=== PATIENT | female | born 1990 | race Hispanic/Latino ===

== ENCOUNTER 2020-02-18 09:54 | Day surgery (SDC) | payer BC ==
[2020-02-18 10:22] VITALS: BMI 40.9
[2020-02-18] MEDS ORDERED: hydrALAZINE 20 MG/ML VIAL SLOW IVP PRN (10:33)
[2020-02-18 11:24] LABS: #Eosinphils 0.1 thou/uL (0.0-0.7); #Lymphocytes 1.3 thou/uL (1.20-3.40); #Monocytes 0.5 thou/uL (0.11-0.59); #Neutrophils 6.5 thou/uL (1.40-6.50); %Basophils 0.1 % (0.0-1.0); %Lymphocytes 15.3 % (21.0-51.0); %Monocytes 6.1 % (0.0-10.0); %Neutrophils 77.5 % (42.0-75.0); Hemoglobin 12.3 g/dL (12.0-16.0); Mean Corpuscular Hemoglobin 31.1 pg (27.0-31.0); Mean Corpuscular Volume 94.4 fL (78.0-98.0); Platelet Count 205 thou/uL (130-400); RBC Distribution Width 15.1 % (11.5-14.5); Red Blood Cell (RBC) Count 3.96 mill/uL (4.20-5.40); White Blood Cell (WBC) Count 8.4 thou/uL (4.8-10.8)
[2020-02-18 11:32] LABS: AST (SGOT) 16 U/L (5-34); Anion Gap 13 mmol/L (10-20); BUN (Urea Nitrogen) 13 mg/dL (7.0-18.7); Calc. Creatinine Clearance 196 mL/min (70-130); Calcium 8.3 mg/dL (7.8-10.44); Carbon Dioxide 20 mmol/L (22-29); Chloride 106 mmol/L (98-107); Estimated GFR-MDRD Greater than 90; Glucose 106 mg/dL (70-105); Potassium 3.9 mmol/L (3.5-5.1); Sodium 135 mmol/L (136-145)
[2020-02-18 11:46] LABS: Creatinine, Urine 101.9 mg/dL (47-110)
--- NOTE | 2020-02-19 06:51 | PRG ---
DATE OF SERVICE: 02/18/2020 TIME OF SERVICE: 12 o'clock. PRESENTING COMPLAINT: Possible elevated blood pressures at 38 weeks' gestation. HISTORY OF PRESENT ILLNESS: The patient was sent over by Dr. Hooks for further evaluation. She is 38 weeks and 0 days and was noted to have elevated blood pressure in the office. She has had a history of preeclampsia with her 1st and was sent over for further evaluation. OBSTETRIC AND GYNECOLOGIC HISTORY: NELLIE of 03/03. Previous x1 at 37 weeks. Blood type O positive, antibody negative. Pap negative. Rubella immune. VDRL nonreactive. Hepatitis virus B, GC, and Chlamydia negative. Group B strep negative. MEDICAL HISTORY: Significant for: 1. Reflux. 2. Anemia. SURGICAL HISTORY: None. MEDICATIONS: vitamins. ALLERGIES: DENIES. SOCIAL HISTORY: Denies tobacco, alcohol, or IV drug use. FAMILY HISTORY: Noncontributory. REVIEW OF SYSTEMS: Noncontributory. PHYSICAL EXAMINATION: GENERAL: female, resting comfortably, in no acute distress. VITAL SIGNS: Initial blood pressure 117/66. Serial blood pressures over course of one hour were with systolics 110 to 120 and diastolics in the 70s to 80s. Pulse is 80, respirations 18, and temperature 97.7. HEENT: Within normal limits. LUNGS: Clear to auscultation bilaterally. HEART: Regular rate and rhythm. ABDOMEN: Soft and nontender. No rebound or guarding. GENITOURINARY: Vulva without lesions. Vagina without discharge. Cervix, fingertip long and high, cephalic, ballotes of these. EXTREMITIES: Without clubbing or cyanosis. With 1+ edema in the lower extremities. DTRs are 1+. LABORATORY DATA: White count 8.4, hematocrit of 37.4%, and platelet count of 205. Creatinine of 0.68 and AST of 16. A teaaekj-tv-muvhzbgzke ratio of approximately 0.19. IMPRESSION: Elevated blood pressures in the office at 38 weeks' gestation without evidence of significant gestational hypertension or preeclampsia on Labor and Delivery evaluation and laboratory analysis. PLAN: ER precautions. Keep scheduled followup in [address] Hooks. FHTs on prolonged monitoring revealed a baseline of 120s to 130s, positive accelerations, no decelerations, category 1 tracing. Job ID: [id number]
== END 2020-02-18 12:03 | disposition home or self-care (01) ==
LOC: L&D/OP 09:54
PROVIDERS: ATTEND Obstetrics & Gynecology
DX: O99.891 Other specified diseases and conditions complicating pregnancy (principal); R03.0 Elevated blood-pressure reading, without diagnosis of hypertension; O99.613 Diseases of the digestive system complicating pregnancy, third trimester; K21.9 Gastro-esophageal reflux disease without esophagitis; O99.013 Anemia complicating pregnancy, third trimester; D64.9 Anemia, unspecified; Z3A.38 38 weeks gestation of pregnancy
CPT/HCPCS: 36415; 59025; 80048; 82570; 84156; 84450; 85025; 99283

== ENCOUNTER 2020-02-25 14:24 | Inpatient (IN) | payer BC, OTHER ==
[2020-02-25 16:29] VITALS: BMI 41.3
[2020-02-25] MEDS ORDERED: Diphenoxylate HCl/Atropine Tablet PO PRN (16:44)
[2020-02-25] MEDS ORDERED: Ibuprofen 800 MG TAB PO PRN (16:44)
[2020-02-25] MEDS ORDERED: Misoprostol 200 MCG TAB PR PRN (16:44)
[2020-02-25] MEDS ORDERED: Acetaminophen 500 MG TAB PO PRN (16:44)
[2020-02-25] MEDS ORDERED: Lidocaine 1% (PF) 30 ML VIAL SC PRN (16:44)
[2020-02-25] MEDS ORDERED: Promethazine HCl 25 MG/ML VIAL IM PRN (16:44)
[2020-02-25] MEDS ORDERED: hydrALAZINE 20 MG/ML VIAL SLOW IVP PRN (16:44)
[2020-02-25] MEDS ORDERED: Ondansetron PF 4 MG/2 ML Vial IVP PRN (16:44)
[2020-02-25] MEDS ORDERED: Carboprost 250 MCG/ML AMP IM PRN (16:44)
[2020-02-25] MEDS ORDERED: HYDROcodone/Acetaminophen 5/325 mg Tablet PO PRN ×2 (16:44)
[2020-02-25] MEDS ORDERED: NS / Oxytocin 40 units/1000ml 1,000 ML IV PRN (16:44)
[2020-02-25] MEDS ORDERED: Butorphanol Tartrate 1 MG/ML VIAL SLOW IVP PRN (16:44)
--- NOTE | 2020-02-25 16:50 | PDOC.LDHP ---
Labor and Delivery H&P Chief complaint: other (elevated bp) HPI: 29yo at 39w0d by LMP with elevated BP, severe range for IOL No sx PIH. Current gestational age (weeks): 39 Due date: 03/03/20 Dating criteria: last menstrual period Grav: 2 Para: 1 Current complications: gestational hypertension Abnormal US findings: No Past Medical History: denies Current medications: pre- vitamins Previous surgical history: none Allergies/Adverse Reactions: Allergies Allergy/AdvReac Type Severity Reaction Status Date / Time No Known Drug Allergies Allergy Verified 02/18/20 10:17 Social history: none - Physical Exam Abnormal vital signs: elevated bp General: NAD Heart: RRR Lungs: CTAB Abdomen: gravid Extremeties: no edema FHT: category 1 - Vaginal Exam cm dilated: 2 Effacement: 25% Station: -2 - OB Labs Blood type: O RH: positive Antibody Screen: negative HIV: negative RPR: negative HEPSAg: negative 1 hour GCT: negative GBS: negative Urine drug screen: negative Rubella: immune - Assessment L&D Assessment: medically indicated induction - Plan Plan: admit to L&D, cervical ripening, labor augmentation if indicated, informed consent obtained, anesthesia consult for pain management -: PIH w/u, Mag for severe features.
[2020-02-25 17:04] LABS: Hemoglobin 12.4 g/dL (12.0-16.0); Mean Corpuscular HGB CONC 33.9 g/dL (32.0-36.0); Mean Corpuscular Hemoglobin 31.6 pg (27.0-31.0); Mean Corpuscular Volume 93.3 fL (78.0-98.0); Mean Platelet Volume 8.4 fL (7.4-10.4); Platelet Count 225 thou/uL (130-400); RBC Distribution Width 15.5 % (11.5-14.5); Red Blood Cell (RBC) Count 3.92 mill/uL (4.20-5.40); White Blood Cell (WBC) Count 9.3 thou/uL (4.8-10.8)
[2020-02-25 17:14] LABS: ALT (SGPT) 14 U/L (8-55); AST (SGOT) 18 U/L (5-34); Albumin 3.4 g/dL (3.5-5.0); Alkaline Phosphatase 141 U/L (40-110); Anion Gap 15 mmol/L (10-20); BUN (Urea Nitrogen) 15 mg/dL (7.0-18.7); Bilirubin, Total 0.2 mg/dL (0.2-1.2); Calc. Creatinine Clearance 187 mL/min (70-130); Calcium 8.8 mg/dL (7.8-10.44); Carbon Dioxide 21 mmol/L (22-29); Chloride 106 mmol/L (98-107); Estimated GFR-MDRD Greater than 90; Globulin 2.8 g/dL (2.4-3.5); Glucose 126 mg/dL (70-105); Potassium 4.2 mmol/L (3.5-5.1); Protein, Total 6.2 g/dL (6.0-8.3); Sodium 138 mmol/L (136-145)
[2020-02-25] MEDS: Misoprostol 100 MCG TAB VAG SCH (17:29)
[2020-02-25 17:31] LABS: Syphilis Antibody Nonreactive (Nonreactive); Syphilis Antibody Index 0.02 S/CO (<1.00 Non-Reactive)
[2020-02-25] MEDS: NS w/ Oxytocin 10 units 500 ML IV SCH (17:31)
[2020-02-25 17:34] LABS: HBSAg Index 0.13 S/CO (0-0.99); Hep B Surf Ag Non-Reactive S/CO (NonReactive)
[2020-02-26] MEDS: NS w/ Oxytocin 10 units 500 ML IV SCH (06:59)
[2020-02-26] MEDS: Lactated Ringer's 1,000 ML IV SCH ×3 (07:31→16:08)
--- NOTE | 2020-02-26 09:03 | PDOC.LDPN ---
Labor & Delivery Progress Note - Subjective Subjective: comfortable - Objective Vital signs reviewed and normal: yes General: NAD Uterine fundus: non tender Dilation: 3 Effacement: 75% Station: -2 FHT: category 1 [place] contractions every: 3min AROM: clear fluid Plan: labor augmentation
[2020-02-26] MEDS ORDERED: Lidocaine 1% (PF) 30 ML VIAL ONE (11:27)
[2020-02-26] MEDS ORDERED: NS / Oxytocin 40 units/1000ml 1,000 ML ONE (11:27)
[2020-02-26 12:00] LABS: SARS-CoV-2 MS2 Positive; SARS-CoV-2 N Gene Negative; SARS-CoV-2 S Gene Negative; SARS-CoV-2 by NAA Not Detected (NotDetected); SARS-CoV-2 orf1ab Negative
--- NOTE | 2020-02-26 15:21 | PDOC.OPDEL ---
OB Operative/Delivery Note Delivery Dr/Surgeon: Neva Assist: n/a Pre-Delivery Diagnosis: medically indicated induction (ghtn) Procedure/Post Delivery Dx: spontaneous vaginal delivery Weeks gestation: 39 Anesthesia: none - Findings A Sex: female Weight: 8 lb 12 oz - 1 min: 8 - 5 min: 9 - Additional Findings/Plan Placenta delivered: spontaneous Repaired Obstetrical Laceration: none Estimated blood loss: 75cc Compilations/Other Findings: brief shoulder dystocia, anterior shoulder right, relieved with Jessica and suprapubic pressure, approx 30sec on perineum. No deficits or injury on initial exam. Post delivery plan: routine recovery
[2020-02-26] MEDS ORDERED: Milk Of Magnesia 30 ML UDCUP PO PRN (15:48)
[2020-02-26] MEDS ORDERED: HYDROcodone/Acetaminophen 5/325 mg Tablet PO PRN ×2 (15:48)
[2020-02-26] MEDS ORDERED: diphenhydrAMINE 25 MG CAP PO PRN (15:48)
[2020-02-26] MEDS ORDERED: Benzocaine-Menthol 82.5 ML CAN TOP PRN (15:48)
[2020-02-26] MEDS ORDERED: Bisacodyl 10 MG SUPP PR PRN (15:48)
[2020-02-26] MEDS ORDERED: hydrALAZINE 20 MG/ML VIAL SLOW IVP PRN (15:48)
[2020-02-26] MEDS ORDERED: Lanolin Ointment 7 GM TUBE TOP PRN (15:48)
[2020-02-26] MEDS ORDERED: Preparation H Ointment 28 GM TUBE PR PRN (15:48)
[2020-02-26] MEDS ORDERED: Ondansetron PF 4 MG/2 ML Vial IVP PRN (15:48)
[2020-02-26] MEDS ORDERED: NS / Oxytocin 40 units/1000ml 1,000 ML IV SCH (15:48)
[2020-02-26] MEDS: Ferrous Sulfate 325 MG TAB PO SCH (16:07)
[2020-02-26] MEDS: Misoprostol 100 MCG TAB VAG SCH ×2 (16:07→16:08)
[2020-02-26] MEDS: Ibuprofen 800 MG TAB PO SCH (21:25)
[2020-02-26] MEDS: Docusate Calcium (SURFAK) 240 MG CAP PO SCH (21:25)
--- NOTE | 2020-02-27 05:18 | PDOC.PP ---
Post Progress Note Post Day #: 1 Subjective: 29 y/o -> 2 delivered via after IOL of PIH. Pt tolerated delivery well. Reports pain well controlled. light lochia amount of period. bonding well with infant. urinating well. no BM or gas yet. tolerating PO well. Denies DUQUE, visual changes, abd pain. PO intake tolerated: yes Flatus: yes Ambulation: yes Vital Signs (12 hours) Temp Pulse Resp BP 02/26/20 23:45 98.2 F 73 14 114/67 02/26/20 21:15 99.5 F 80 15 122/57 L 02/26/20 17:45 98.1 F 74 16 125/66 Weight Weight 102.512 kg - Physical Examination General: NAD Cardiovascular: no m/r/g, RRR Respiratory: clear to auscultation bilaterally, non-labored breathing Abdominal: + bowel sounds, lochia, no distention, appropriately TTP Extremities: negative homans (B) Skin: no rash Neurological: no gross focal deficits Psychiatric: A&Ox3, normal affect Result Diagrams: 02/25/20 15:24 02/25/20 15:24 Additional Labs: Post Labs Hep Bs Antigen Non-Reactive S/CO (NonReactive) 02/25/20 15:24 Blood Type O POSITIVE 02/25/20 15:24 (1) Normal vaginal delivery Code(s): O80 - ENCOUNTER FOR FULL-TERM UNCOMPLICATED DELIVERY Status: Acute (2) induced hypertension, delivered, current hospitalization Code(s): O13.9 - GESTATIONAL HTN W/O SIGNIFICANT PROTEINURIA, UNSP TRIMESTER Status: Acute - Assessment/Plan 29 y/o -> 2 PP after @ 39.0 weeks 1. Term delivered via - PP Day #1 - brief shoulder dystocia relived by Charo and suprapubic pressure~30 seconds time. - light lochia - pain well managed. 2. Gestational HTN - monitor BP Q@4Hrs today - overnight all within normal limits. - No si/sx of Pre-E Dispo: monitor BP's today and plan for d.c home tomorrow if stable pressures Care plan discussed with Dr. Jaramillo, attending physician, who is in agreement with above stated plan.
[2020-02-27] MEDS: Ibuprofen 800 MG TAB PO SCH ×2 (05:41→13:47)
[2020-02-27] MEDS: Ferrous Sulfate 325 MG TAB PO SCH (08:17)
[2020-02-27] MEDS: Docusate Calcium (SURFAK) 240 MG CAP PO SCH (08:18)
[2020-02-27] MEDS ORDERED: Prenatal Vitamin 1 TAB PO SCH (09:00)
[2020-02-27] MEDS ORDERED: Adacel (T-DAP) 0.5 ML SYRINGE IM ONE (09:00)
[2020-02-27 12:00] VITALS: BP 119/58; TEMP 98.6
== END 2020-02-27 17:15 | disposition home or self-care (01) | DRG 807 ==
LOC: L&D/OP 14:24 → L&D 14:32 → 3SE 02-26 17:11
PROVIDERS: ADMIT Student in an Organized Health Care Education/Training Program; ATTEND Student in an Organized Health Care Education/Training Program
PROC: 3E0P7VZ Introduction of Hormone into Female Reproductive, Via Natural or Artificial Opening (ICD-10-PCS; 2020-02-25)
PROC: 10907ZC Drainage of Amniotic Fluid, Therapeutic from Products of Conception, Via Natural or Artificial Opening (ICD-10-PCS; 2020-02-25)
PROC: 10E0XZZ Delivery of Products of Conception, External Approach (ICD-10-PCS; principal; 2020-02-26)
DX: O13.4 Gestational [pregnancy-induced] hypertension without significant proteinuria, complicating childbirth (principal); Z37.0 Single live birth; Z3A.39 39 weeks gestation of pregnancy; Z20.828 Contact with and (suspected) exposure to other viral communicable diseases; O66.0 Obstructed labor due to shoulder dystocia
CPT/HCPCS: 80053; 81003; 85027; 86780; 86850; 86900; 86901; 87340; 87635; J2590; U0003